=== PATIENT | male | born 1970 | race Caucasian/White ===

== ENCOUNTER → 2017-06-09 | Outpatient (CLI) | END | disposition home or self-care (01) ==

== ENCOUNTER 2017-09-27 10:41 | Emergency (ER) | payer OTHER ==
[~2017-09-27] VITALS: Ht 182.9 cm; Wt 81.7 kg
[~2017-09-27 10:41] MED LIST: ASPI325EC PO; DABI150C; ESOM20; FAMO20; FIBER GUMMIES1 EACH PO; LORA10; MULTI VITAMIN1 EACH; MULTIVITAMIN PO; RANI150 PO; XARELTO20 MG PO; Zofran Odt4 MG PO; [UNRECOGNIZED DRUG - OTHER] PO
[2017-09-27 11:28] LABS: BASOPHILS ABSOLUTE AUTO 0.03 K/mm3 (0.00-0.23); BASOPHILS PERCENT AUTO 0 % (0-2); EOSINOPHILS ABSOLUTE AUTO 0.24 K/mm3 (0.00-0.68); EOSINOPHILS PERCENT AUTO 3 % (0-6); IMMATURE GRAN ABSOLUTE AUTO 0.02 K/mm3 (0.00-0.10); IMMATURE GRAN PERCENT AUTO 0 % (0-1); LYMPHOCYTES ABSOLUTE AUTO 1.91 K/mm3 (0.84-5.20); LYMPHOCYTES PERCENT AUTO 22 % (21-46); MONOCYTES ABSOLUTE AUTO 0.52 K/mm3 (0.16-1.47); MONOCYTES PERCENT AUTO 6 % (4-13); Mean Corpuscular HGB 28.5 pg (26.0-34.0); Mean Corpuscular HGB Conc 32.7 g/dL (31.5-36.5); Mean Corpuscular Volume 87 fL (80-100); Mean Platelet Volume 9.8 fL (9.1-12.4); NEUTROPHILS ABSOLUTE AUTO 6.15 K/mm3 (1.96-9.15); NEUTROPHILS PERCENT AUTO 69 % (41-73); Platelet Count 181 K/mm3 (150-400); RDW Standard Deviation 38.2 fL (35.1-46.3); Red Blood Cell Count 5.97 M/mm3 (4.30-5.90); White Blood Cell Count 8.87 K/mm3 (4.00-11.30)
[2017-09-27 11:42] LABS: Alanine Aminotransfer (ALT/SGP 25 U/L (12-78); Albumin, Blood 3.7 g/dL (3.4-5.0); Albumin/Globulin Ratio 0.9 (0.8-1.8); Alk Phos 112 U/L (50-136); Anion Gap 7 mmol/L (6-16); Aspartate Aminotrans (AST/SGOT 19 U/L (12-37); Bilirubin, Total 1.2 mg/dL (0.1-1.0); Blood Urea Nitrogen 17 mg/dL (8-24); Bun/Creatinine Ratio 16.7 (12.0-20.0); CO2, Blood 28 mmol/L (21-32); Calcium, Blood 8.9 mg/dL (8.5-10.1); Chloride, Blood 106 mmol/L (98-108); Creatinine, Blood 1.02 mg/dL (0.60-1.20); Globulin, Blood 4.2 g/dL (2.2-4.0); Glomerular Filtration Rate >60 (60-); Glucose, Blood 112 mg/dL (70-99); Sodium, Blood 141 mmol/L (136-145); Total Protein, Blood 7.9 g/dL (6.4-8.2)
[2017-09-27 11:46] LABS: Source, Urine Clean Catch
[2017-09-27 12:32] LABS: Appearance, Urine Clear (Clear); Bilirubin, Urine Neg (Neg); Blood, Urine Neg (Neg); Color, Urine Yellow (P-Yellow); Glucose Qualitative, Urine Neg (Neg); Ketones, Urine Neg (Neg); Leukocyte Esterase, Urine Neg (Neg); Nitrite, Urine Neg (Neg); Protein, Urine 1+ (Neg); Urobilinogen, Urine NORM (Normal)
[2017-09-27] MEDS ORDERED: Percocet 5-3251 EACH PO (13:22)
[2017-09-27] MEDS ORDERED: PROM25 PO (13:22)
[2017-09-27] MEDS ORDERED: XARELTO20 MG PO (14:35)
== END 2017-09-27 13:46 | disposition home or self-care (01) ==
LOC: ER 10:41
PROVIDERS: Emergency Medicine
DX: K80.20 Calculus of gallbladder without cholecystitis without obstruction (principal); Z79.899 Other long term (current) drug therapy; Z79.4 Long term (current) use of insulin
CPT/HCPCS: 36415; 80053; 83690; 85025; 96365; 96375; 99283; J1200; J2550; J7030

== ENCOUNTER → 2018-01-05 | Outpatient (CLI) | payer OTHER ==
[~2018-01-05] MED LIST changes: +CETI5; +LOVENOX150 MG/1 M; +PROM25 PO; +Percocet 5-3251 EACH PO
== END | disposition home or self-care (01) ==
LOC: LAB SHORT 10:41 → PLD 10:41
DX: L73.9 Follicular disorder, unspecified (principal); L57.8 Other skin changes due to chronic exposure to nonionizing radiation; L85.9 Epidermal thickening, unspecified; L83 Acanthosis nigricans
CPT/HCPCS: 88305; 88312

== ENCOUNTER 2021-01-30 07:44 | Day surgery (SDC) | payer OTHER ==
[~2021-01-30] VITALS: Ht 177.8 cm; Wt 89.4 kg
[~2021-01-30 07:44] MED LIST changes: +ELIQUIS5 MG PO; +ERGO400 PO; +Ranitidine HCl150 M1 PO
[2021-01-30] MEDS ORDERED: MELATONIN5 M1 PO (08:39)
--- NOTE | 2021-01-30 08:47 | NUR ---
Ambulatory in Day Surgery History, Chart, Medications and Allergies reviewed before start of procedure. Lungs clear T/O to Auscultation. Patient confirms NPO status and agrees with scheduled surgery. Pre-Op teaching done. Pt verbalizes understanding. Patient States Post-Procedure ride home has been arranged.
--- NOTE | 2021-01-30 09:27 | NUR ---
01/30/21 0927 SelvinIzzy Vianney History, Chart, Medications and Allergies reviewed before start of procedure.MONITOR INTACT WITH CONTINUOUS PULSE OXIMETRY AND INTERMITTENT BP.O2 VIA N/C INTACT THROUGHOUT SEDATION/PROCEDURE. 3-LEAD EKG REVIEWED WITH PHYSICIAN PRIOR TO START OF PROCEDURE.PATIENT DETERMINED TO BE ASA APPROPRIATE FOR PROPOFOL SEDATION PRIOR TO START OF PROCEDURE BY
== END 2021-01-30 23:50 | disposition home or self-care (01) ==
LOC: ORSCMMR 07:44 → ORSCSDS 08:30 → ORSCMMR 09:15 → ORSCSDS 09:30 → ORSCMMR 23:50 → ORSCSDS 02-06 08:30
PROVIDERS: Internal Medicine Gastroenterology
PROC: 0DJD8ZZ Inspection of Lower Intestinal Tract, Via Natural or Artificial Opening Endoscopic (ICD-10-PCS; principal; 2021-01-30 09:15)
DX: Z12.11 Encounter for screening for malignant neoplasm of colon (principal); Z86.010 Personal history of colon polyps; K64.4 Residual hemorrhoidal skin tags; K64.8 Other hemorrhoids
CPT/HCPCS: J2704; J7120

== ENCOUNTER 2023-03-21 12:12 | Day surgery (SDC) | payer OTHER ==
[~2023-03-21] VITALS: Ht 180.3 cm; Wt 90.0 kg
[2023-03-21] VITALS (20 sets, daily range): BP systolic 107–161; BP diastolic 69–118
[~2023-03-21 12:12] MED LIST changes: +MELATONIN5 M1 PO
--- NOTE | 2023-03-21 12:39 | NUR ---
Ambulatory in Day Surgery History, Chart, Medications and Allergies reviewed before start of procedure.Lungs clear T/O to Auscultation. Patient confirms NPO status and agrees with scheduled surgery. Patient states colon prep results clear. Patient States Post-Procedure ride home has been arranged.Pt has history of Factor V.He states that he took his Eliquis on 03/18/23.
--- NOTE | 2023-03-21 13:27 | NUR ---
03/21/23 Christiana Busch HISTORY, CHART, MEDICATIONS AND ALLERGIES REVIEWED BEFORE START OF PROCEDURE. PATIENT CONFIRMS NPO STATUS AND AGREES WITH SCHEDULED PROCEDURE. 3-LEAD EKG REVIEWED WITH PHYSICIAN PRIOR TO START OF PROCEDURE. MONITOR INTACT WITH CONTINUOUS PULSE OXIMETRY,CAPNOGRAPHY, 3-LEAD EKG, INTERMITTENT BP. SUPPLEMENTAL O2 TO BE TITRATED THROUGHOUT PROCEDURE TO MAINTAIN O2 SATURATION ABOVE 90%. PATIENT DETERMINED TO BE ASA APPROPRIATE FOR PROPOFOL SEDATION PRIOR TO START OF PROCEDURE BY .
--- NOTE | 2023-03-21 14:01 | NUR ---
PT TO DAY SURGERY STEP RECOVERY. PT AWAKE AND ORIENTED; ABLE TO MOVE SELF IN BED. PT HAS NO COMPLAINTS AT THIS TIME.
--- NOTE | 2023-03-21 14:28 | NUR ---
Discharge instructions reviewed with patient. Patient verbalizes understanding. Copy given to patient to take home. Discharged via wheelchair to private car for ride home.
== END 2023-03-21 14:30 | disposition home or self-care (01) ==
LOC: ORSCMMR 12:12 → ORD 13:30 → ORSCMMR 14:30
DX: K62.5 Hemorrhage of anus and rectum (principal); Z86.010 Personal history of colon polyps; K63.5 Polyp of colon; K64.8 Other hemorrhoids; K64.4 Residual hemorrhoidal skin tags; Z79.01 Long term (current) use of anticoagulants
CPT/HCPCS: 88305; J2704; J7120